=== PATIENT | male | born 1965 | race Caucasian/White ===

== ENCOUNTER 2024-02-24 08:05 | Outpatient (OUT) | payer BC, SELFPAY ==
--- NOTE | 2024-02-24 08:20 | XR_ITS ---
The [address] [address] Patient Name: DAVID MONTELONGO MRN: [id number] date: 1965 Sex: M Assigned Patient Location: [facility] Current Patient Location: Accession/Order Number: [id number] Exam Date: 02/24/2024 08:25 Report Date: 02/25/2024 06:19 At the request of: GINNY BRASWELL Procedure: XR abdomen 1V EXAMINATION: XR abdomen 1V HISTORY: Calculus Of Ureter N20.1 ; left flank pain COMPARISON: No relevant comparison available. FINDINGS: KIDNEY/URETER - RIGHT: No visible renal or ureteral calcifications. KIDNEY/URETER - LEFT: 10 x 6 mm calcification projecting over left renal pelvis/proximal ureter. PELVIS: 2 tiny calcifications within left pelvis; distal ureteral stones versus phleboliths. BOWEL: No abnormal dilation or deviation. BONES: No acute abnormality. OTHER: Negative. No abnormal gaseous collections. XR/XR abdomen 1V IMPRESSION: 1. Large 10 x 6 mm stone suspected to be within the proximal left ureter or at the ureteral vesicle junction. 2. Tiny distal ureteral stones versus pelvic phleboliths within left pelvis. No prior studies for comparison. Electronically authenticated by: CELINE GOODWIN Date: 02/25/2024 06:19
== END 2024-02-24 08:06 | disposition home or self-care (01) ==
LOC: RAD 08:11
PROVIDERS: Visit Provider Urology
DX: N20.1 Calculus of ureter (principal)
CPT/HCPCS: 74018

== ENCOUNTER 2024-02-24 13:42 | Outpatient (OUT) | payer BC, SELFPAY ==
--- NOTE | 2024-02-24 13:45 | ECG_ITS ---
The [facility] Test Date: 2024-02-24 Pat Name: DAVID MONTELONGO Department: Room: - Gender: Male [employer]: : 1965 Requested By: GINNY BRASWELL Order Number: [id number] Reading MD: DUARTE MAJOR Measurements Intervals [place] Rate: 69 P: 48 MD: 192 QRS: 40 QRSD: 88 T: 40 QT: 348 QTc: 373 Interpretive Statements SINUS RHYTHM NONSPECIFIC T-WAVE ABNORMALITY No previous ECG available for comparison Electronically Signed On 02-24-2024 23:00:01 EDT by DUARTE MAJOR
[2024-02-24 14:22] LABS: Basophils Percent Auto 0.4 % (0.2-2.0); Eosinophils Absolute Auto 0.2 10^3/uL (0.0-0.7); Eosinophils Percent Auto 3.2 % (0.9-7.0); Hematocrit 42.8 % (42.0-54.0); Hemoglobin 14.8 g/dL (14.0-18.0); Immature Granulocytes Abs Auto 0.02 10^3/uL (0.00-0.03); Immature Granulocytes Pct Auto 0.3 % (0.0-0.5); Lymphocytes Absolute Auto 1.8 10^3/uL (1.2-3.8); Lymphocytes Percent Auto 24.9 % (20.5-60.0); Mean Corpuscular HGB Conc 34.6 g/dL (29.9-35.2); Mean Corpuscular Hemoglobin 30.5 pg (25.9-34.0); Mean Corpuscular Volume 88.2 fL (80.0-94.0); Mean Platelet Volume 8.8 fL (9.5-13.5); Monocytes Absolute Auto 0.6 10^3/uL (0.3-0.8); Monocytes Percent Auto 7.9 % (1.7-12.0); Neutrophils Absolute Auto 4.6 10^3/uL (1.4-6.5); Neutrophils Percent Auto 63.3 % (43.0-75.0); Platelet Count 164 10^3/uL (150-450); Red Blood Count 4.85 10^6/uL (4.70-6.10); Red Cell Distribution Width 11.9 % (11.0-15.0); White Blood Count 7.2 10^3/uL (4.0-11.0)
[2024-02-24 14:37] LABS: Anion Gap 12.3; BUN Creatinine Ratio 20.8; Calcium 9.3 mg/dL (8.5-10.1); Carbon Dioxide 29.4 mmol/L (21.0-32.0); Chloride 102 mmol/L (98-107); Estimated GFR (African America >60 (>=60); Estimated GFR (Non-African Ame >60 (>=60); Glucose 128 mg/dL (74-106); Potassium 3.7 mmol/L (3.5-5.1); Sodium 140 mmol/L (136-145)
[2024-02-24 15:54] LABS: INR 0.97; Partial Thromboplastin Time 27.7 sec (22.3-36.2); Prothrombin Time 10.3 sec (9.0-11.6)
== END 2024-02-24 13:43 | disposition home or self-care (01) ==
LOC: PST 13:43
PROVIDERS: Visit Provider Urology
DX: Z01.810 Encounter for preprocedural cardiovascular examination (principal); Z01.812 Encounter for preprocedural laboratory examination; N20.1 Calculus of ureter
CPT/HCPCS: 74018; 80048; 85025; 85610; 85730; 93005

== ENCOUNTER 2024-02-27 06:40 | Day surgery (SDC) | payer BC, SELFPAY ==
[2024-02-24 14:14] VITALS: BP 120/80; PULSE 73; TEMP 36.4; O2SAT 94; BMI 28.9
[2024-02-27] VITALS (8 sets, daily range): BP systolic 117–153; BP diastolic 52–84; PULSE 54–77; TEMP 35.9–36.4; O2SAT 95–98
--- NOTE | 2024-02-27 06:45 | XR_ITS ---
The [address] [address] Patient Name: DAVID MONTELONGO MRN: [id number] date: 1965 Sex: M Assigned Patient Location: [facility] Current Patient Location: Accession/Order Number: [id number] Exam Date: 02/27/2024 06:45 Report Date: 02/27/2024 13:00 At the request of: GINNY BRASWELL Procedure: XR abdomen 1V EXAMINATION: XR abdomen 1V HISTORY: kidney stones COMPARISON: 02/24/2024 FINDINGS: KIDNEY/URETER - RIGHT: No visible renal or ureteral calcifications. KIDNEY/URETER - LEFT: 10 mm calcification projects over the left L3 transverse process likely in the renal pelvis, unchanged PELVIS: No visible ureteral calcifications. Any visible calcifications favor phleboliths. BOWEL: No abnormal dilation or deviation. BONES: No acute abnormality. OTHER: Negative. No abnormal gaseous collections. XR/XR abdomen 1V IMPRESSION: Stable 10 mm left urinary tract calcification likely at the ureteral pelvic junction Electronically authenticated by: DAVID HUMPHRIES Date: 02/27/2024 13:00
[2024-02-27] MEDS: LACTATED RINGER'S SOLUTION 1,000 ML 50 ML IV (07:33)
[2024-02-27] MEDS: CEFAZOLIN SODIUM/DEXTROSE,ISO 1 GM/50 ML IV.SOLN IV (07:46)
--- NOTE | 2024-02-27 08:33 | P.URON_ITS ---
Urology Surgery Operative Note Operative Note Procedure Date: 02/27/24 Time Out Performed: yes Pre-op Diagnosis: Left proximal ureteral calculus Post-op Diagnosis: same as pre-op Procedures performed: 1. Left ESWL. Anesthesia: General-LMA Primary Surgeon: Antonio Brown Complications: None Estimated blood loss (mL): 0 Findings: 8 mm left proximal ureteral calculus Specimens: None Drains: None Indications for Procedures: This gentleman has an 8 mm left proximal ureteral calculus. He has been unable to pass this stone. He now presents for left ESWL and possible ureteroscopic laser lithotripsy and stent placement. He has signed an informed consent for these procedures after risks were explained. Some of these include bleeding, perinephric hematoma, infection and anesthesia to name a few. Detailed description of Procedure: The patient was brought to the Operating Room and placed on Siemens electromagnetic lithotripsy treatment table in the supine position. SCDs were placed on their lower extremities and turned on and functioning during the entire case. Timeout was done by all parties in the room. We all agreed upon the patient's identification and the planned procedures for this patient. General Anesthesia was then administered via LMA. Treatment head was then brought to the patient's correct side. While using flourscopy the stone was identified and lined up into the crosshairs. We then began applying shocks at power level 2.0 and increased to a maximum of power level 3.7. Intermittent fluoroscopy revealed that the stone steadily fragmented. We applied a total of 3000 shocks. Our last fluoroscopic image revealed no evidence of any significant formed stone remaining. The procedure was then terminated. He was then transferred to a [facility] bed and wheeled to PACU in stable condition.
--- NOTE | 2024-02-27 09:12 | PC.NURSE ---
REDDENED AREA NOTED LEFT FLANK AREA
--- NOTE | 2024-02-27 09:38 | PC.NURSE ---
Up to bathroom and voided bloody urine without difficulty; urine strained and negative for calculi
== END 2024-02-27 09:40 | disposition home or self-care (01) ==
PROVIDERS: Visit Provider Urology
PROC: (CPT 873; principal; 2024-02-27 08:00)
DX: N13.2 Hydronephrosis with renal and ureteral calculous obstruction (principal); R10.9 Unspecified abdominal pain; I10 Essential (primary) hypertension; N52.9 Male erectile dysfunction, unspecified; Z87.442 Personal history of urinary calculi; Z79.899 Other long term (current) drug therapy; F32.A Depression, unspecified; Z87.891 Personal history of nicotine dependence
CPT/HCPCS: 50590; 36415; 74018; J1094; J2704